=== PATIENT | female | born 1955 | race Caucasian/White ===

== ENCOUNTER 2019-09-02 19:33 | Emergency (ER) | payer BC, OTHER ==
[2019-09-02 19:41] VITALS: RESP 18
[2019-09-02] MEDS ORDERED: LIDOCAINE 1% INJ 10MG/ML (20 ML MDV) SQ STA (19:53)
[2019-09-02] MEDS ORDERED: DIPH,PERTUS(ACELL)TETVAC-LF 0.5 ML VIAL IM ONE (19:54)
--- NOTE | 2019-09-02 20:31 | XR ---
EXAMINATION TYPE: XR wrist complete RT DATE OF EXAM: 09/02/2019 COMPARISON: NONE HISTORY: Pain TECHNIQUE: Four views submitted. FINDINGS: The osseous structures are intact. The joint spaces are preserved and there is no acute fracture or dislocation. IMPRESSION: 1. No definite acute fracture or dislocation if symptoms persist, follow-up study in 7 to 10 days wo uld be suggested
--- NOTE | 2019-09-02 21:46 | ED ---
General Adult HPI - General Chief complaint: Wound/Laceration Stated complaint: Arm lac Time Seen by Provider: 09/02/19 19:43 Source: patient, RN notes reviewed, old records reviewed Mode of arrival: ambulatory Limitations: no limitations - History of Present Illness Initial comments: 64-year-old female patient upper intestinal history presents ED for evaluation of laceration to right forearm. Patient states that she was crawling into bed with a piece of pizza and a knife to cut the pizza when she accidentally pressed her weight down on the knife causing a laceration to the medial aspect of the right midshaft forearm. Patient states that this was a brand-new knife that was never before used therefore it was clean. It does not know date of last t etanus. Denies any other complaints. Systemic: Pt denies fatigue, fever/chills, rash. Pt denies weakness, night sweats, weight loss. Neuro: Pt denies headache, visual disturbances, syncope or pre-syncope. HEENT: Pt denies ocular discharge or irritation, otalgia, rhinorrhea, pharyngitis or notable lymphadenopathy. Cardiopulmonary: Pt denies chest pain, SOB, heart palpitations, dyspnea on exertion. Abdominal/GI: Pt denies abdominal pain, n/v/d. : Pt denies dysuria, burning w/ urination, frequency/urgency. Denies new onset urinary or bowel incontinence. MSK: Pt denies myalgia, loss of strength or function in extremities. Neuro: Pt denies new onset weakness, paresthesias. - Related Data Home Medications Medication Instructions Recorded Confirmed Cetirizine HCl 10 mg PO DAILY 09/02/19 09/02/19 Citalopram Hydrobromide 40 mg PO DAILY 09/02/19 09/02/19 [Citalopram HBr] Clobetasol Propionate [Temovate 1 applic TOPICAL BID PRN 09/02/19 09/02/19 0.05% Oint] Cyclobenzaprine [Flexeril] 10 mg PO HS PRN 09/02/19 09/02/19 Dextroamphetamine/Amphetamine 20 mg PO DAILY 09/02/19 09/02/19 [Adderall] Hydrocortisone Oint 1 applic TOPICAL BID PRN 09/02/19 09/02/19 [Hydrocortisone 2.5% Oint] Ketoconazole 2% Cream [Nizoral 2%] 1 applic TOPICAL BID PRN 09/02/19 09/02/19 Terbinafine [LamISIL] 250 mg PO DAILY 09/02/19 09/02/19 amLODIPine [Norvasc] 10 mg PO DAILY 09/02/19 09/02/19 buPROPion HCL [buPROPion HCL ER] 200 mg PO Q12HR 09/02/19 09/02/19 Allergies Allergy/AdvReac Type Severity Reaction Status Date / Time No Known Allergies Allergy Verified 09/02/19 20:23 Review of Systems ROS Statement: Those systems with pertinent positive or pertinent negative responses have been documented in the HPI. ROS Other: All systems not noted in ROS Statement are negative. Past Medical History Past Medical History: No Reported History History of Any Multi-Drug Resistant Organisms: None Reported Past Surgical History: Hysterectomy Past Psychological History: No Psychological Hx Reported Smoking Status: Never smoker Past Alcohol Use History: None Reported Past Drug Use History: Marijuana General Exam - General Exam Comments Initial Comments: Constitutional: NAD, AOX3, Pt has pleasant affect. HEENT: NC/AT, trachea midline, neck supple, no lymphadenopathy. Posterior pharynx non erythematous, without exudates. External ears appear normal, without discharge. Mucous membranes moist. Eyes PERRLA, EOM intact. There is no scleral icterus. No pallor noted. Cardiopulmonary: RRR, no murmurs, rubs or gallops, no JVD noted. Lungs CTAB in anterior and posterior hernandez. No peripheral edema. Neuro: CN II-XII grossly intact. No nuchal rigidity. No raccon eyes, no gamboa sign, no hemotympanum. No cervical spinal tenderness. MSK: 3 cm laceration to the medial aspect of the right midshaft forearm. Full range of motion of upper extremity. Sensation is intact. Neurovascularly intact. Vigorously irrigated and approximated with 5 simple interrupted sutures. Sensation intact in upper and lower extremities. Full active ROM in upper and lower extremities, 5/5 stregnth. Limitations: no limitations Course Vital Signs 09/02/19 09/02/19 19:39 21:47 Temperature 98.4 F 98.7 F Pulse Rate 90 74 Respiratory 18 18 Rate Blood Pressure 151/89 158/102 O2 Sat by Pulse 98 96 Oximetry Medical Decision Making - Medical Decision Making 64-year-old female patient upper intestinal history presents ED for evaluation of laceration to right forearm. Patient states that she was crawling into bed with a piece of pizza and a knife to cut the pizza when she accidentally pressed her weight down on the knife causing a laceration to the medial aspect of the right midshaft forearm. Patient states that this was a brand-new knife that was never before used therefore it was clean. It does not know date of last tetanus. Denies any other complaints. Physical exam: 3 cm laceration to the medial aspect of the right midshaft forearm. Full range of motion of upper extremity. Sensation is intact. Neurovascularly intact. Vigorously irrigated and approximated with 5 simple interrupted sutures. Plain films displayed no acute process. Patient discharged to follow-up with primary care provider and will return to ER if condition worsens. Case discussed with Dr. Augustin. Disposition Clinical Impression: Laceration Disposition: HOME SELF-CARE Condition: Stable Instructions (If sedation given, give patient instructions): Laceration (ED) Additional Instructions: Follow-up with primary care provider in 1-2 days. Return to ER if condition worsens. Please return for suture removal: Hand: 7-10 days Face: 5 days Chest/abdomen: 12-14 days Extremities: 7-10 days Scalp: 7 days Eyebrow: 5-7 days Foot/sole: 12-14 days Please monitor for signs and symptoms of infection including: redness, warmth, drainage, discharge. Please return to ED if these signs or symptoms occur, new signs or symptoms develop or if condition worsens in anyway. Is patient prescribed a controlled substance at d/c from ED?: No Referrals: Shannan Mejia DO [Primary Care Provider] - 1-2 days
[2019-09-02 22:01] VITALS: BP 158/102; PULSE 74; TEMP 98.7
--- NOTE | 2019-09-02 22:19 | ED ---
Disposition Clinical Impression: Laceration Disposition: HOME SELF-CARE Condition: Stable Instructions (If sedation given, give patient instructions): Laceration (ED) Additional Instructions: Follow-up with primary care provider in 1-2 days. Return to ER if condition worsens. Please return for suture removal: Hand: 7-10 days Face: 5 days Chest/abdomen: 12-14 days Extremities: 7-10 days Scalp: 7 days Eyebrow: 5-7 days Foot/sole: 12-14 days Please monitor for signs and symptoms of infection including: redness, warmth, drainage, discharge. Please return to ED if these signs or symptoms occur, new signs or symptoms develop or if condition worsens in anyway. Is patient prescribed a controlled substance at d/c from ED?: No Referrals: Shannan Mejia DO [Primary Care Provider] - 1-2 days Procedures - Laceration Laceration #1 Consent Obtained: verbal consent Indication: laceration Site: upper extremity (right forearm midshaft) Size (cm): 3 Description: linear Depth: simple, single layer Anesthetic Used: lidocaine 1% Anesthesia Technique: local infiltration Amount (mls): 2 Pre-repair: wound explored, irrigated extensively, deep structures intact Type of Sutures: nylon Size of Sutures: 5-0 Number of Sutures: 5 Technique: simple, interrupted Patient Tolerated Procedure: well, no complications Additional Comments: Lungs range of motion of hand and wrist. Neurovascularly intact. Strength is intact flexion and extension ulnar and radial deviation, rotation.
== END 2019-09-02 22:01 | disposition home or self-care (01) ==
LOC: EC 19:33
DX: S51.811A Laceration without foreign body of right forearm, initial encounter (principal); Z23 Encounter for immunization; W26.0XXA Contact with knife, initial encounter; Y93.G3 Activity, cooking and baking
CPT/HCPCS: 73110; 90715; 99283; 12002; 90471; J2001

== ENCOUNTER → 2021-08-31 | Outpatient (CLI) | payer BC ==
--- NOTE | 2021-09-01 01:56 | MR ---
EXAMINATION TYPE: MR knee LT wo con DATE OF EXAM: 08/31/2021 COMPARISON: None HISTORY: Left knee pain, painful kneecap, and swelling. Multiplanar multi echo imaging of the left knee without contrast. There is moderate knee joint effusion. There is spurring of the femoral and tibial condyles. There is horizontal tear through the posterior horn of the medial meniscus extending to the inferior surface. There is mild increased signal within the substance of the anterior horn of the lateral meniscus. Th e patella is intact. The anterior and posterior cruciate ligaments are intact. Collateral ligaments a re intact. There is no evidence of a fracture. There is small areas of increased signal in the medial femoral and tibial condyles consistent with mild edema and bone bruise. There is narrowing of the pa tellofemoral joint space. IMPRESSION: There is intrasubstance tear anterior horn of the lateral meniscus. There is horizontal tear posterio r horn of the medial meniscus. Moderate knee joint effusion. No evidence of ligamentous tear. Mild os teoarthritis. There is patellofemoral osteoarthritis.
== END | disposition home or self-care (01) ==
LOC: RADMRIMAIN 18:51
PROVIDERS: ATTEND Orthopaedic Surgery
DX: M23.342 Other meniscus derangements, anterior horn of lateral meniscus, left knee (principal); M23.322 Other meniscus derangements, posterior horn of medial meniscus, left knee; M17.12 Unilateral primary osteoarthritis, left knee

== ENCOUNTER → 2021-09-25 | Outpatient (CLI) | payer BC ==
[2021-09-25 14:21] LABS: Basophils # (A) 0.11 X 10*3/uL (0.00-0.10); Basophils % (A) 1.6 %; Eosinophils # (A) 0.29 X 10*3/uL (0.04-0.35); Eosinophils % (A) 4.1 %; HCT 39.7 % (37.2-46.3); HGB 11.8 g/dL (12.0-15.0); Immature Grans, Automated 0.3 %; Lymphocytes # (A) 1.54 X 10*3/uL (0.90-5.00); Lymphocytes % (A) 21.8 %; MCHC 29.7 g/dL (32.0-37.0); MCV 87.6 fL (80.0-97.0); Monocytes % (A) 9.9 %; NRBC Per 100 WBC 0 /100 WBCS (0.0-0.0); Neutrophils # (A) 4.41 X 10*3/uL (1.80-7.70); Neutrophils % (A) 62.3 %; Platelet Count 348 X 10*3/uL (140-440); RBC 4.53 X 10*6/uL (4.10-5.20); RDW 12.8 % (11.5-14.5); WBC 7.07 X 10*3/uL (4.50-10.00)
[2021-09-25 14:32] LABS: Anion Gap 10.5 mmol/L (10.00-18.00); Carbon Dioxide 26.4 mmol/L (20.0-27.5); Potassium 4.9 mmol/L (3.5-5.5)
== END | disposition home or self-care (01) ==
LOC: LABWHC1 08:35
PROVIDERS: ATTEND Orthopaedic Surgery
DX: Z01.812 Encounter for preprocedural laboratory examination (principal); M23.92 Unspecified internal derangement of left knee
CPT/HCPCS: 36415; 80051; 85025; 93005

== ENCOUNTER 2021-10-01 10:21 | Day surgery (SDC) | payer BC ==
[2021-09-30 08:36] VITALS: BMI 29.2
--- NOTE | 2021-09-30 18:04 | HP ---
HISTORY AND PHYSICAL DATE OF SURGERY: 10/01/2021 Mikaela Galarza is a 66-year-old patient seen with progressive left knee pain. We discussed options for treatment. She elected to proceed with left knee arthroscopy. Consent was obtained. PAST MEDICAL HISTORY: Hypertension, hyperlipidemia. PAST SURGICAL HISTORY: Hysterectomy. DAILY MEDICATIONS: Amlodipine, atorvastatin, meloxicam. ALLERGIES: NONE. SOCIAL HISTORY: She denies tobacco use. PHYSICAL EVALUATION OF THE LEFT KNEE: Range of motion is zero to 130. Mild effusion. Tenderness along the medial and lateral joint lines. Positive medial Nilsa's. Positive lateral Nilsa's. Ligaments stable. Hip rotation without pain. Distal neurovascular exam intact. Radiographs of her left knee revealed moderate osteoarthritis. MRI left knee revealed medial meniscal tear and intraarticular effusion. IMPRESSION: 1. Internal derangement of left knee with medial meniscal tear. 2. Hypertension. 3. Hyperlipidemia. PLAN: Left knee arthroscopy with partial medial meniscectomy and debridement. MMODL / IJN: [id number] /
[~2021-10-01 10:21] MED LIST: LACTATED RINGERS 1,000 ML IV SCH
[2021-10-01 11:51] VITALS: RESP 16
[2021-10-01] MEDS ORDERED: ONDANSETRON 4 MG/2 ML VIAL ONE (11:59)
[2021-10-01] MEDS ORDERED: ONDANSETRON 4 MG/2 ML VIAL IVP ONE (12:05)
[2021-10-01] MEDS ORDERED: DEXAMETHASONE SOD PHOSPHATE 4 MG/ML 1 ML VIAL IVP ONE (12:06)
[2021-10-01] MEDS ORDERED: BUPIVACAINE (PF) 0.25% 30 ML VIAL SQ ONE ×2 (13:06→13:38)
[2021-10-01] MEDS ORDERED: MIDAZOLAM 2 MG/2 ML VIAL ONE (13:08)
[2021-10-01] MEDS ORDERED: fentaNYL (PF) 50 MCG/ML 2 ML AMP ONE (13:08)
[2021-10-01] MEDS ORDERED: PROPOFOL 10 MG/ML 20 ML VIAL IV ONE (13:08)
[2021-10-01] MEDS ORDERED: LIDOCAINE 2% INJ 20 MG/ML (2 ML VIAL) ONE (13:08)
--- NOTE | 2021-10-01 13:53 | P.OP ---
Date of Procedure: 10/01/21 Preoperative Diagnosis: Internal derangement left knee Postoperative Diagnosis: 1. Tear medial meniscus left knee 2. Grade 4 chondromalacia medial femoral condyle left knee 3. Reactive synovitis medial, lateral and suprapatellar compartments left knee Procedure(s) Performed: 1. Arthroscopic partial medial meniscectomy left knee 2. Arthroscopic microfracture medial femoral condyle left knee 3. Arthroscopic partial synovectomy, lateral and suprapatellar compartments left knee Anesthesia: JENNIFERA, local Surgeon: Aramis Barr Estimated Blood Loss (ml): 7 Pathology: none sent Condition: stable Disposition: PACU Indications for Procedure: 66-year-old patient seen with progressive left knee pain. After treatment options were discussed, she elected to proceed with arthroscopy. Operative Findings: See description of procedure Description of Procedure: Patient was taken to the operative suite. Patient underwent a general anesthetic by the department of anesthesia. Patient was given preoperative antibiotics. The left lower extremity was placed in a well-padded arthroscopic leg thomas. The left leg was prepped and draped in the normal sterile orthopedic fashion. A lateral parapatellar and suprapatellar incision was made. Trochars were inserted. Arthroscopy was initiated. Suprapatellar pouch revealed diffuse thick reactive synovitis. The patellofemoral joint appeared to articulate congruently. There was grade 2/3 chondromalacia patella with no osteochondral tears present. The scope was guided into the medial gutter. No loose bodies or plica were identified. The scope was then guided into the medial compartment. A medial parapatellar incision was made. Trocar inserted followed by probe. There was a root tear of the medial meniscus with instability. There were grade 3/4 chondromalacia changes of the medial femoral condyle. There was some thick reactive synovitis anteriorly. I performed a partial medial meniscectomy getting down to stable meniscal tissue. I performed a partial synovectomy decompressing the reactive synovitis anteriorly. I performed a chondroplasty medial femoral condyle which exposed an area of exposed bone measuring approximately 1.5 cm on the weightbearing surface area. I now introduced a microfracture awl and I performed a microfracture to that area of exposed bone medial femoral condyle penetrating the bone with resultant bleeding at the microfracture site. The residual meniscus was probed and found to be stable. The residual osteochondral surface appeared stable. There was good decompression of the synovitis. Scope and probe were then guided into the intercondylar notch. Cruciates were identified, probed and found to be stable. The scope and probe were then guided into lateral compartment. The lateral meniscus was probed and was found to be stable. There was mild grade 1 chondromalacia of the tibial plateau. There was some thick reactive synovitis anteriorly. I introduced a motorized shaver and I performed a partial synovect jose involving the lateral compartment. The shaver was now removed. There was good decompression of synovitis. The scope was in guided back into the suprapatellar compartment. I introduced a motorized shaver into the suprapatellar compartment. I debrided some piecemeal fragments of meniscus I encountered. I performed a partial synovectomy. The shaver was removed. There was good decompression of the synovitis. I took one more look around the entire knee, no residual debris. Instruments were now removed from the joint. The joint was infiltrated with .25% Marcaine. Steri-Strips were applied to the portal sites. Sterile dressings were applied. The patient was placed into a JEANETH hose. No tourniquet was utilized. The patient was awakened, transferred to a bed and taken to recovery stable satisfactory condition.
[2021-10-01 13:59] VITALS: TEMP 97.5
[2021-10-01] MEDS ORDERED: HYDROmorphone 0.5 MG/0.5 ML SYRINGE IVP ONE (14:11)
[2021-10-01] MEDS ORDERED: KETOROLAC 15 MG/ML 1 ML VIAL IVP ONE (14:14)
[2021-10-01] MEDS ORDERED: LACTATED RINGERS 1,000 ML IV ONE (14:28)
[2021-10-01 15:03] VITALS: BP 138/76; PULSE 72
== END 2021-10-01 13:12 | disposition home or self-care (01) ==
LOC: OR 10:21
PROVIDERS: ATTEND Orthopaedic Surgery
DX: S83.242A Other tear of medial meniscus, current injury, left knee, initial encounter (principal); I10 Essential (primary) hypertension; E78.5 Hyperlipidemia, unspecified; F12.90 Cannabis use, unspecified, uncomplicated; Z87.891 Personal history of nicotine dependence; Z86.73 Personal history of transient ischemic attack (TIA), and cerebral infarction without residual deficits; F32.A Depression, unspecified; F41.9 Anxiety disorder, unspecified; F98.8 Other specified behavioral and emotional disorders with onset usually occurring in childhood and adolescence; Z79.899 Other long term (current) drug therapy; M22.42 Chondromalacia patellae, left knee; M65.9 Synovitis and tenosynovitis, unspecified
CPT/HCPCS: 29879; 29881; J2250; J1100; J0690; J2405; J3010; J1885; J2704; J1170; J2001

== ENCOUNTER → 2024-03-01 | Outpatient (CLI) | payer MEDICARE ==
--- NOTE | 2024-03-05 09:12 | MM ---
Reason for Exam: Screening (asymptomatic). Last mammogram was performed 8 year(s) and 7 month(s) ago. Patient History: Menarche at age 14. First Full-Term at age 17. Postmenopausal. Maternal cousin had breast cancer, age 49. Risk Values: So 5 year model risk: 1.2%. NCI Lifetime model risk: 4.4%. Prior Study Comparison: 05/03/2008 Bilateral Screening Mammogram, [facility]. 04/21/2011 Bilateral Screening Mammogram, [facility]. 08/12/2015 Bilateral Screening Mammogram, [facility]. Tissue Density: There are scattered areas of fibroglandular density. Findings: Analyzed By CAD. Right breast: There is no suspicious group of microcalcifications or new suspicious mass. Left breast: There is no suspicious group of microcalcifications or new suspicious mass. Overall Assessment: Negative, BI-RAD 1 Management: Screening Mammogram of both breasts in [address] [facility] will attempt to contact patient to return for supplemental views and ultrasound if indicated. Patient should continue monthly self-breast exams. A clinical breast exam by your physician is recommended on an annual basis. This exam should not preclude additional follow-up of suspicious palpable abnormalities. Note on So scores and lifetime risk: 1. A So score greater than 3% is considered moderate risk. If this is the case, consider specialist referral to assess eligibility for a risk reducing agent. 2. If overall lifetime risk for the development of breast cancer is 20% or higher, the patient may qualify for future screening with alternating mammogram and breast MRI. [facility], , 03/05/2024 9:08 AM. Electronically signed and approved by: Tray Carrizales DO
== END | disposition home or self-care (01) ==
LOC: RADMAMWWP 13:54
PROVIDERS: ATTEND Family Medicine
DX: Z12.31 Encounter for screening mammogram for malignant neoplasm of breast
CPT/HCPCS: 77063; 77067